=== PATIENT | female | born 1960 | race Caucasian/White ===

== ENCOUNTER 2017-09-29 19:15 | Observation (INO) | payer BC, SELFPAY ==
[2017-09-29 19:17] VITALS: BP 151/88; PULSE 58; RESP 16; TEMP 36.9; O2SAT 98; BMI 21.1
[2017-09-29 19:40] LABS: Bedside Glucose 110 mg/dL (70-110)
--- NOTE | 2017-09-29 20:09 | CT_ITS ---
STUDY: CT BRAIN WITHOUT CONTRAST REASON FOR EXAM: Female, 57 years old. Dizziness weakness RADIATION DOSAGE (If Supplied By Facility): CTDIvol = ( 44.99 ) mGy, DLP = ( 749.30 ) mGycm TECHNIQUE: Transaxial CT imaging of the brain was performed without administration of intravenous contrast material. Individualized dose optimization techniques were used for this CT. COMPARISON: August 12, 2016 CT scan head FINDINGS: Normal soft tissue structures. Normal calvarium. Normal size ventricles and extra-axial spaces for the patient's age. Normal white matter tracts of the cerebral hemispheres. Normal basal ganglia and thalami. Normal brainstem. Normal cerebellum. There is no intracranial hemorrhage. There are no findings of an acute ischemic infarction. There is trace mucosal thickening in the maxillary sinuses. CT/Brain/Head without Contrast IMPRESSION: Normal unenhanced CT scan of the brain. Electronically Signed: Danni Argueta MD at 20:59 EDT Tel , Service support ,
--- NOTE | 2017-09-29 20:09 | EKG12_ITS ---
Test Reason : DIZZINESS/WEAKNESS Blood Pressure : / mmHG Vent. Rate : 056 BPM Atrial Rate : 056 BPM P-R Int : 138 ms QRS Dur : 094 ms QT Int : 434 ms P-R-T Axes : 079 060 049 degrees QTc Int : 418 ms Sinus bradycardia Otherwise normal ECG Confirmed by MELISSA DELACRUZ, ELADIO ([id number]), web content editor MARGI GAMING ([id number]) on 09/30/2017 5:12:26 PM Referred By: OFELIA Confirmed By:ELADIO TORRES MD
--- NOTE | 2017-09-29 20:20 | RAD_ITS ---
STUDY: X-RAY CHEST REASON FOR EXAM: Female, 57 years old. Dizziness, weakness TECHNIQUE: Single frontal view of the chest. COMPARISON: None. FINDINGS: The lungs are clear and expanded. There is no demonstrated pleural abnormality. Normal size heart. Normal mediastinum and graciela. Normal visualized pulmonary arteries. Normal visualized aortic arch and descending thoracic aorta. Normal visualized thoracic spine. Normal visualized ribs, clavicles, and shoulders. There is no demonstrated abnormality of the visualized soft tissue structures of the upper abdomen. RAD/Chest 1 View (Portable) IMPRESSION: Normal x-ray examination of the chest. Electronically Signed: Danni Argueta MD at 20:42 EDT Tel , Service support ,
[2017-09-29 20:27] LABS: Absolute Lymphocyte Count 1.78 X10^3/ul (0.83-4.51); Absolute Neutrophil Count 2.5 X10^3/uL (2.0-7.7); Basophil# 0.02 X10^3/uL; Basophil% 0.4 % (0-1); Eosinophil# 0.14 X10^3/uL; Eosinophils% 2.9 % (0-5); Hematocrit 38.4 % (37-47); Hemoglobin 13.1 g/dl (12.0-15.0); Lymphocyte # 1.78 X10^3/ul (4.0); Lymphocyte % 36.7 % (19-41); Mean Corp Hgb Conc 34.1 g/gl (32-36); Mean Corpuscular Hgb 31.1 pg (27.0-32.0); Mean Corpuscular Volume 91.2 fL (81-99); Mean Platelet Vol. 9.3 fl (6.2-12.0); Monocyte# 0.43 X10^3/uL; Monocyte% 8.9 % (0-10); Neutrophil # 2.48 X10^3/uL (2.7-7.7); Neutrophil % 51.1 % (47-70); Platelet Count 300 K/mm3 (150-450); RBC Distribution Width CV 12.2 % (11.6-14.6); RBC Distribution Width SD 39.6 fl (35.1-43.9); Red Blood Count 4.21 M/mm3 (4.2-5.4); White Blood Count 4.9 K/mm3 (4.4-11.0)
[2017-09-29] MEDS: Meclizine 12.5 MG Tablet PO (20:34)
[2017-09-29 20:38] LABS: POSITIVE COUNT NO; POSITIVE DIFFERENTIAL NO; POSITIVE MORPHOLOGY NO
[2017-09-29 20:48] LABS: Anion Gap 6 (5-15); BUN 17 mg/dL (7-18); Calcium,Total 8.9 mg/dL (8.5-10.1); Chloride 101 mmol/L (98-107); Creatinine, Serum 0.68 mg/dL (0.55-1.02); EST Glomerular Filtration Rate 95 mL/min (>60); Est Glom Filt Rate - Afr Amer 115 mL/min (>60); Glucose 98 mg/dL (74-106); Potassium 3.5 mmol/L (3.5-5.1); Sodium Level 136 mmol/L (136-145)
[2017-09-29 21:15] VITALS: BP 134/84; PULSE 59; RESP 16; O2SAT 97
--- NOTE | 2017-09-29 21:30 | ED.DCSUM_ITS ---
- ER Visit Summary Date of Service: 09/29/17 Chief Complaint: Dizziness/vertigo History of Present Illness: The patient is a 57 F presenting with sudden onset of dizziness. She states that she was sitting at her computer and she started to feel dizzy with a spinning sensation. This worsened when she stood up and turned her head. She states that the symptoms persisted. Her checked her blood sugar and her blood pressure which were within normal limits. She states that her whole body felt weak. She did not pass out. She states that she was unable to answer questions appropriately. She states she knew which words she wanted to say but was unable to get the words out. She denies chest pain or shortness of breath. Physical Examination: Vitals are stable. Patient is afebrile. Alert no acute distress. HEENT exam is unremarkable. Neck is supple. Lungs are clear and equal bilaterally. Heart is regular rate and rhythm. Abdomen is soft nontender nondistended. Extremities are unremarkable. Skin is warm and dry. No focal neurologic deficit. NIH 0 Remainder of exam is unremarkable. Emergency Department Course and Treatment: Patient is given meclizine p.o. with improvement of her vertigo symptoms. EKG is sinus rate of 56 with no acute ischemic changes. CT head shows no acute process. Chest x-ray is normal. CBC , chemistries unremarkable. Troponin is negative. Her vertigo has improved but due to her expressive aphasia will discuss with the hospitalist for observation. Disposition: Observation Impression: Vertigo, expressive aphasia This note was generated with [employer] dictation software. It may contain incorrect words, spelling, and punctuation that were not noted in review of the chart prior to signing ED Disposition - Plan for ED Patient: Chief Complaint: Dizziness Referrals: Craig Lyn DO [Primary Care Provider] -
[2017-09-29 22:34] VITALS: BP 140/83; PULSE 61; RESP 16; O2SAT 98
--- NOTE | 2017-09-29 22:48 | PCM.HP.STD ---
Problem List (1) Vertigo Status: Acute History of Present Illness Date of Admission: 09/29/17 Chief Complaint: vertigo The patient is a 57 year old F who was in her normal state of health where patient suddenly, around 6:30 PM felt acutely dizzy. Patient was very pale and had to lay down. Patient stated that her dizziness got worse when she sat up. Patient's put 3 fingers in front of her face and patient knew what she wants a but her response was slow. There was no noted slurred speech but it was a delayed response. He was concerned as the patient was brought into the emergency room. In the emergency room patient has felt better and is pretty much back to normal patient had a CAT scan that was unremarkable additional blood work that was unremarkable. Patient did receive some meclizine in the emergency room. Patient has never had anything like this in the past. [] Past Medical History Allergies No Known Allergies Allergy (Verified 09/29/17 19:16) Home Medications: Ambulatory Orders Medication Instructions Recorded Calcium Carbonate [Calcium] 1,500 mg PO DAILY 09/29/17 Ergocalciferol [Vitamin D] 50,000 unit PO Q14D 09/29/17 Valacyclovir HCl [Valacyclovir] 500 mg PO DAILY 09/29/17 Psychiatric History: No pertinent psych hx Lives: Spouse/ Significant Other Smoking Status: Never smoker Alcohol: Rare Drugs: None - *Family History Maternal History Items: Stroke - TIA Review of Systems Constitutional: Denies: Chills, Fever, Weight Change Eyes: Denies: Blurred vision, Double vision HEENT: Denies: Head Aches, Sinus Congestion, Sinus Drainage Cardiovascular: Denies: Chest Pain, Palpitations Respiratory: Denies: Cough, Shortness of breath at rest, Sputum production Gastrointestinal: Denies: Abdominal Pain, Nausea, Vomiting Genitourinary: Denies: Dysuria Musculoskeletal: Denies: Joint Pain, Joint Tenderness Skin: Denies: Rash, Wounds Neurological: Reports: Balance problems, Incoordination Psychiatric: Denies: Anxiety, Depression Endocrine: Denies: Change in Body Habitus, Heat/ Cold Intolerance Hematologic/ Lymphatic: Denies: Easy Bruising, Easy Bleeding, Hx of blood clot Comment: All other review systems are negative except for as mentioned above in the HPI and review of systems. VTE Information - Inpt Only VTE Present on Admission: No VTE Pharm Prophylaxis ordered?: Yes Patient Problems: Active and Suspected Problems Vertigo (Acute) - Physical Exam General: Alert, Oriented x3, Cooperative, No apparent distress HEENT: Atraumatic, EOMI Oral: Moist Mucosa, No Gingival or Mucosal Lesions/ Ulcerations Neck: No Nodes, Thyroid Normal Size and Texture Lungs: Clear to auscultation, Normal air movement, No rhonchi, No wheeze Cardiovascular: Regular rate, Regular Rhythm, Normal S1, Normal S2, No murmurs Abdomen: Bowel Sounds Present, Soft, Non Tender, Non-Distended, No Hepato-splenomegaly Extremities: No edema, No Calf Tenderness Skin: No rashes, No breakdown Musculoskeletal: No Tenderness to Palpation of Joints or Extremities, No Muscle Wasting Neurological: Cranial nerves II-XII grossly intact, Neuro grossly intact, Motor Exam 5/5 strength throughout, - - Visual diaz intact except for impaired in the bilateral upper quadrants where patient was not able to see my fingers adequately. NIH score was 1 based on those visual field deficits. Psych/Mental Status: Normal Affect, Appropriate Vital Signs Temp Pulse Resp BP Pulse Ox 36.9 C 61 16 140/83 H 98 09/29/17 19:17 09/29/17 22:34 09/29/17 22:34 09/29/17 22:34 09/29/17 22:34 Oxygen Delivery Method Room Air Weight: 50.802 kg Body Mass Index (BMI) 21.1 Finger Stick Blood Glucose 110 Laboratory Tests Past 24 Hrs 09/29/17 09/29/17 19:40 19:40 WBC 4.9 RBC 4.21 Hgb 13.1 Hct 38.4 MCV 91.2 MCH 31.1 MCHC 34.1 RDW 12.2 RDW Differential 39.6 Plt Count 300 MPV 9.3 Immature Gran % (Auto) 0.000 Neut % (Auto) 51.1 Lymph % (Auto) 36.7 [place] % (Auto) 8.9 Eos % (Auto) 2.9 Baso % (Auto) 0.4 Absolute Neuts (auto) 2.5 Absolute Lymphs (auto) 1.78 Total Counted Not Reportable Sodium 136 Potassium 3.5 Chloride 101 Carbon Dioxide 29.0 Anion Gap 6 BUN 17 Creatinine 0.68 Est GFR (MDRD) Af Amer 115 Est GFR (MDRD) Non-Af 95 BUN/Creatinine Ratio 25.0 H Glucose 98 Calcium 8.9 Troponin I < 0.015 POC Glucose 09/29/17 19:35 POC Glucose 110 Clinical Impression(s) from Imaging Studies Brain CT 09/29/17 20:09 IMPRESSION: Normal unenhanced CT scan of the brain. Electronically Signed: Danni Argueta MD at 20:59 EDT Tel , Service support , Chest X-Ray 09/29/17 20:20 IMPRESSION: Normal x-ray examination of the chest. Electronically Signed: Danni Argueta MD at 20:42 EDT Tel , Service support , Assessment/Plan All Active Problems Vertigo (Acute) 1. Vertigo I suspect this is more of a benign paroxysmal positional vertigo rather than a stroke process. But given patient's visual field deficits I feel it is certainly prudent to rule out a stroke. Patient will be admitted under observation status and undergo an MRI of the brain, MRA of the head neck, 2D echocardiogram, physical and occupational therapy evaluate and treat. I am going to hold off on neurology consultation unless stroke is identified. As I feel most strongly this is likely vertigo I will have the patient take meclizine as needed. I have also advised There is no stroke that patient follow-up with this physical therapy for vestibular rehab. 2. DVT prophylaxis with Lovenox Code Visit OBSV E&M: 49953 Initial observation care L3
--- NOTE | 2017-09-29 22:54 | HP.PCM_ITS ---
Problem List (1) Vertigo Status: Acute History of Present Illness Date of Admission: 09/29/17 Chief Complaint: vertigo The patient is a 57 year old F who was in her normal state of health where patient suddenly, around 6:30 PM felt acutely dizzy. Patient was very pale and had to lay down. Patient stated that her dizziness got worse when she sat up. Patient's put 3 fingers in front of her face and patient knew what she wants a but her response was slow. There was no noted slurred speech but it was a delayed response. He was concerned as the patient was brought into the emergency room. In the emergency room patient has felt better and is pretty much back to normal patient had a CAT scan that was unremarkable additional blood work that was unremarkable. Patient did receive some meclizine in the emergency room. Patient has never had anything like this in the past. [] Past Medical History Allergies No Known Allergies Allergy (Verified 09/29/17 19:16) Home Medications: Ambulatory Orders Medication Instructions Recorded Calcium Carbonate [Calcium] 1,500 mg PO DAILY 09/29/17 Ergocalciferol [Vitamin D] 50,000 unit PO Q14D 09/29/17 Valacyclovir HCl [Valacyclovir] 500 mg PO DAILY 09/29/17 Psychiatric History: No pertinent psych hx Lives: Spouse/ Significant Other Smoking Status: Never smoker Alcohol: Rare Drugs: None - *Family History Maternal History Items: Stroke - TIA Review of Systems Constitutional: Denies: Chills, Fever, Weight Change Eyes: Denies: Blurred vision, Double vision HEENT: Denies: Head Aches, Sinus Congestion, Sinus Drainage Cardiovascular: Denies: Chest Pain, Palpitations Respiratory: Denies: Cough, Shortness of breath at rest, Sputum production Gastrointestinal: Denies: Abdominal Pain, Nausea, Vomiting Genitourinary: Denies: Dysuria Musculoskeletal: Denies: Joint Pain, Joint Tenderness Skin: Denies: Rash, Wounds Neurological: Reports: Balance problems, Incoordination Psychiatric: Denies: Anxiety, Depression Endocrine: Denies: Change in Body Habitus, Heat/ Cold Intolerance Hematologic/ Lymphatic: Denies: Easy Bruising, Easy Bleeding, Hx of blood clot Comment: All other review systems are negative except for as mentioned above in the HPI and review of systems. VTE Information - Inpt Only VTE Present on Admission: No VTE Pharm Prophylaxis ordered?: Yes Patient Problems: Active and Suspected Problems Vertigo (Acute) - Physical Exam General: Alert, Oriented x3, Cooperative, No apparent distress HEENT: Atraumatic, EOMI Oral: Moist Mucosa, No Gingival or Mucosal Lesions/ Ulcerations Neck: No Nodes, Thyroid Normal Size and Texture Lungs: Clear to auscultation, Normal air movement, No rhonchi, No wheeze Cardiovascular: Regular rate, Regular Rhythm, Normal S1, Normal S2, No murmurs Abdomen: Bowel Sounds Present, Soft, Non Tender, Non-Distended, No Hepato- splenomegaly Extremities: No edema, No Calf Tenderness Skin: No rashes, No breakdown Musculoskeletal: No Tenderness to Palpation of Joints or Extremities, No Muscle Wasting Neurological: Cranial nerves II-XII grossly intact, Neuro grossly intact, Motor Exam 5/5 strength throughout, - - Visual diaz intact except for impaired in the bilateral upper quadrants where patient was not able to see my fingers adequately. NIH score was 1 based on those visual field deficits. Psych/Mental Status: Normal Affect, Appropriate Vital Signs Temp Pulse Resp BP Pulse Ox 36.9 C 61 16 140/83 H 98 09/29/17 19:17 09/29/17 22:34 09/29/17 22:34 09/29/17 22:34 09/29/17 22:34 Oxygen Delivery Method Room Air Weight: 50.802 kg Body Mass Index (BMI) 21.1 Finger Stick Blood Glucose 110 Laboratory Tests Past 24 Hrs 09/29/17 09/29/17 19:40 19:40 WBC 4.9 RBC 4.21 Hgb 13.1 Hct 38.4 MCV 91.2 MCH 31.1 MCHC 34.1 RDW 12.2 RDW Differential 39.6 Plt Count 300 MPV 9.3 Immature Gran % (Auto) 0.000 Neut % (Auto) 51.1 Lymph % (Auto) 36.7 Person % (Auto) 8.9 Eos % (Auto) 2.9 Baso % (Auto) 0.4 Absolute Neuts (auto) 2.5 Absolute Lymphs (auto) 1.78 Total Counted Not Reportable Sodium 136 Potassium 3.5 Chloride 101 Carbon Dioxide 29.0 Anion Gap 6 BUN 17 Creatinine 0.68 Est GFR (MDRD) Af Amer 115 Est GFR (MDRD) Non-Af 95 BUN/Creatinine Ratio 25.0 H Glucose 98 Calcium 8.9 Troponin I < 0.015 POC Glucose 09/29/17 19:35 POC Glucose 110 Clinical Impression(s) from Imaging Studies Brain CT 09/29/17 20:09 IMPRESSION: Normal unenhanced CT scan of the brain. Electronically Signed: Danni Argueta MD at 20:59 EDT Tel , Service support , Chest X-Ray 09/29/17 20:20 IMPRESSION: Normal x-ray examination of the chest. Electronically Signed: Danni Argueta MD at 20:42 EDT Tel , Service support , Assessment/Plan All Active Problems Vertigo (Acute) 1. Vertigo * I suspect this is more of a benign paroxysmal positional vertigo rather than a stroke process. But given patient's visual field deficits I feel it is certainly prudent to rule out a stroke. Patient will be admitted under observation status and undergo an MRI of the brain, MRA of the head neck, 2D echocardiogram, physical and occupational therapy evaluate and treat. * I am going to hold off on neurology consultation unless stroke is identified. * As I feel most strongly this is likely vertigo I will have the patient take meclizine as needed. I have also advised There is no stroke that patient follow -up with this physical therapy for vestibular rehab. 2. DVT prophylaxis with Lovenox Code Visit OBSV E&M: 06275 Initial observation care L3
--- NOTE | 2017-09-29 23:14 | ECHOD_ITS ---
Reason For Study: TIA/CVA Procedure This was a 2D Doppler, Color Flow transthoracic echocardiogram. Exam performed portable in patient room. Left Ventricle Normal LV size. Left ventricular systolic function is normal. The estimated ejection fraction is 60 %. No evidence for diastolic dysfunction. No regional wall motion abnormalities noted. Right Ventricle Normal RV size. Normal systolic function. Atria Normal left atrium. Normal right atrium. Patent foramen ovale. Mitral Valve Normal mitral valve. Trivial eccentric mitral valve insufficiency. Tricuspid Valve Normal tricuspid valve. Trivial tricuspid valve insufficiency. Normal pulmonary artery pressure. Aortic Valve Normal aortic valve. Trisinus/trileaflet aortic valve. Pulmonic Valve Normal pulmonic valve. Great Vessels Normal aortic root. The pulmonary artery is normal size. Normal inferior vena cava. Pericardium/Pleural No pericardial effusion. Medication Performed a rapid injection of agitated mix of 9 cc saline and 1cc air to assess for atrial septal defect. MMode/2D Measurements & Calculations LVIDd: 4.7 cm IVSd: 0.72 cm Ao root diam: 2.6 cm LVIDs: 2.8 cm LVPWd: 0.73 cm RVDd: 3.3 cm FS: 38.9 % LAV(MOD-bp): 32.3 ml EDV(MOD-sp4): 62.2 ml SV(MOD-sp4): 45.0 ml LAV(MOD-bp) Indexed: 21.9 ml/m2 ESV(MOD-sp4): 17.2 ml LAV(MOD-sp2): 45.7 ml EF(MOD-sp4): 72.3 % LAV(MOD-sp4): 22.6 ml LA A4 area: 10.9 cm2 RA A4 area: 13.9 cm2 Doppler Measurements & Calculations MV E max ad: 87.3 cm/sec Lat Peak E' Ad: 12.0 cm/sec Med Peak E' Ad: 9.2 cm/sec MV A max ad: 55.9 cm/sec E/E' lat: 7.3 E/E' med: 9.5 MV E/A: 1.6 Ao V2 max: 135.2 cm/sec LV V1 max: 113.5 cm/sec PA V2 max: 81.7 cm/sec Ao max P.3 mmHg LV V1 max P.2 mmHg Ao V2 mean: 101.8 cm/sec Ao mean P.6 mmHg Ao V2 VTI: 30.6 cm TR max ad: 218.6 cm/sec TR max P.1 mmHg Interpretation Summary Normal LV size. Left ventricular systolic function is normal. The estimated ejection fraction is 60 %. No evidence for diastolic dysfunction. Patent foramen ovale. Ordering Physician: Phoenix Patiño Referring Physician: Craig Culver Performed By: Victoria Lu, SANTOS, RVT
[2017-09-29 23:22] VITALS: BMI 21.2
[2017-09-29 23:23] VITALS: PULSE 58
[2017-09-29 23:33] VITALS: BP 120/73; PULSE 95; RESP 16; TEMP 36.4; O2SAT 93
[2017-09-29 23:34] VITALS: BP 136/71
[2017-09-29 23:36] VITALS: BMI 21.2
[2017-09-30] VITALS (10 sets, daily range): BP systolic 83–119; BP diastolic 46–74; PULSE 50–88; RESP 14–16; TEMP 36.3–37.1; O2SAT 97–99; BMI 21.2
[2017-09-30 06:38] LABS: Cholesterol 167 mg/dL (200); High Density Lipoprotein 94 mg/dL; Triglycerides 50 mg/dL; Very Low Density Lipoprotein 10 mg/dL (5-40)
[2017-09-30] MEDS: Enoxaparin 40 MG/0.4 ML Syringe SC (07:03)
--- NOTE | 2017-09-30 07:34 | MRI_ITS ---
STUDY: MRI BRAIN WITH AND WITHOUT CONTRAST REASON FOR EXAM: Female, 57 years old. vertigo. TECHNIQUE: Standardized multiplanar fat and water weighted pulse sequences were obtained. 6 ml of Gadavist contrast material was administered intravenously for the contrast portion of the examination. COMPARISON: August 12, 2016 FINDINGS: Normal size of the ventricles and extra-axial spaces for the patient's age. Again noted are the limited number of small white matter hyperintensities, distributed throughout the deep white matter tracts of the cerebral hemispheres, consistent with mild chronic white matter ischemic changes. Normal bilateral basal ganglia. Normal thalami. There is no extra-axial fluid accumulation. Normal flow voids within the major intracranial circulation suggesting patency by spin echo criteria. Normal venous enhancement. There is no enhancing intra-axial or extra-axial abnormality. Normal sella turcica, pituitary gland, infundibular stalk, optic chiasm and hypothalamus. Normal tectal plate and pineal gland. Normal midbrain, edgar and medulla. Normal cerebellum. Normal basal cisterns. Normal bilateral temporal bones. Normal bilateral internal auditory canals. No demonstrated orbital abnormality, within the constraints of a routine brain study. There is mucoperiosteal inflammatory disease of the paranasal sinuses consistent with mild chronic sinusitis. Normal calvarium and skull base. Normal visualized soft tissue structures. Normal visualized upper cervical spine. MRI/Brain W/WO Contrast IMPRESSION: No acute intracranial abnormality or masses. Mild paranasal sinus disease. Electronically Signed: Rylan Arriaga MD at 13:00 EDT Tel , Service support ,
--- NOTE | 2017-09-30 07:35 | MRI_ITS ---
STUDY: MRA OF THE HEAD WITHOUT CONTRAST REASON FOR EXAM: Female, 57 years old. vertigo. TECHNIQUE: 3-D [id number] (TOF) imaging was performed with MIPs. The study was performed unenhanced. COMPARISON: None. FINDINGS: Normal bilateral petrous carotid arteries. Normal right cavernous carotid artery with a normal supraclinoid bifurcation. Normal left cavernous carotid artery with a normal supraclinoid bifurcation. Normal right A1 segments of the anterior cerebral artery. Normal left A1 segments of the anterior cerebral artery. Normal intact anterior communicating artery (ACOM). Normal bilateral A2 segments of the anterior cerebral arteries. Normal right M1 and M2 segments of the middle cerebral arteries, with a normal M1 bifurcation. Normal left M1 and M2 segments of the middle cerebral arteries, with a normal M1 bifurcation. Normal right posterior communicating artery (PCOM). Normal left posterior communicating artery (PCOM). Normal bilateral vertebral arteries. Normal basilar artery with a normal basilar bifurcation. The visualized bilateral superior cerebellar (SCA) arteries are normal. Normal bilateral P1, P2 and visualized P3 segments of the posterior cerebral arteries. There is no demonstrated aneurysm of the [place] of [place]. There is no major vessel occlusion or hemodynamically significant stenosis. There is no demonstrated abnormality of the visualized brain. MRI/MRA Head ONLY without Contrast IMPRESSION: Normal MRA of the head Electronically Signed: Rylan Arriaga MD at 13:01 EDT Tel , Service support ,
--- NOTE | 2017-09-30 07:35 | MRI_ITS ---
STUDY: MRA NECK WITH AND WITHOUT CONTRAST REASON FOR EXAM: Female, 57 years old. vertigo. TECHNIQUE: 3-D [id number] (TOF) imaging was performed in an 1.5 T MRI scanner. 6 ml of Gadavist was administered for the contrast enhanced images. COMPARISON: None. FINDINGS: RIGHT CAROTID ARTERIES: Normal right common carotid artery (CCA). Normal right common carotid bulb. Normal origin of the right internal carotid (ICA) artery without a hemodynamically significant stenosis. Normal visualized cervical portion of the right internal carotid artery. Normal origin of the right external carotid artery (ECA). LEFT CAROTID ARTERIES: Normal left common carotid artery (CCA). Normal left common carotid bulb. Normal origin of the left internal carotid (ICA) artery without a hemodynamically significant stenosis. Normal visualized cervical portion of the left internal carotid artery. Normal origin of the left external carotid artery (ECA). VERTEBRAL ARTERIES: Normal antegrade flow within the bilateral vertebral artery without a hemodynamically significant stenosis. MRI/MRA Neck WITH and W/O Contrast IMPRESSION: Normal bilateral cervical carotid and vertebral arteries. Electronically Signed: Rylan Arriaga MD at 13:06 EDT Tel , Service support ,
[2017-09-30] MEDS: LORazepam 0.5 MG Tablet PO (07:53)
--- NOTE | 2017-09-30 08:13 | NURSING ---
patient taken down for mri
--- NOTE | 2017-09-30 11:38 | PCM.DC ---
- Discharge Diagnoses Current Active Problems: Current Active and Chronic Problems Vertigo (Acute) You will use the following diet at home:: Regular Discharge Activity: May Not Drive - FOR 3 days for dizziness/vertigo Call your doctor if you observe: Fever of 101 or Higher, Chest pain Allergies/Adverse Reactions: Allergies No Known Allergies Allergy (Verified 09/29/17 19:16) Medications to take at Discharge Calcium Carbonate [Calcium] 1,500 mg PO DAILY 09/29/17 Ergocalciferol [Vitamin D] 50,000 unit PO Q14D 09/29/17 Valacyclovir HCl [Valacyclovir] 500 mg PO DAILY 09/29/17 Meclizine HCl [Antivert] 25 mg PO 4X/DAY PRN PRN #20 tab 09/30/17 The following prescriptions were given: Meclizine HCl [Antivert] 25 mg PO 4X/DAY PRN PRN #20 tab PRN Reason: Vertigo Primary Care Physician: Craig Lyn DO [Primary Care Provider] - Please follow up with your Primary Care Physician in: in 2 weeks
--- NOTE | 2017-09-30 11:39 | PCM.DC.SUM ---
Discharge Date and Diagnosis Date of Admission: 09/29/17 Date of Discharge: 09/30/17 - Primary Discharge Diagnosis Active and Suspected Problems Vertigo (Acute) Near syncope and vertigo most probably secondary to orthostatic hypotension Hospital Course and Treatment Imaging Results: 09/30/17 07:34 Brain W/WO Contrast [MRI] Routine 09/30/17 07:35 MRA Head ONLY without Contrast [MRI] Routine MRA Neck WITH and W/O Contrast [MRI] Routine Summary of Care Provided: The patient is a 57 year old F with no significant cardiac history or stroke came to ER with sudden onset of dizziness and vertigo and delayed responsiveness/awareness. She never had history of vertigo/dizziness. on further history, she felt dizzy and vertigo when changing the position of head mainly on turning head on the left side or on the standing up. The patient had CT head which was unremarkable. Patient was further admitted on [facility]. [] 1. Near syncope with vertigo most related to orthostatic hypotension/BPPV. monitoring and evaluation advisor shows normal sinus rhythm. Chest x-ray normal. MRI of brain, MRA neck and head was unremarkable. 2D echo was done and shows EF 60% with no evidence of diastolic dysfunction and no regional wall motion abnormality. Patient is reported normal. She has significant orthostatic change with blood pressure changed from 104/58, 75 to 86/49, 88 on the standing. Patient did not give any history of external loss of fluid. IV fluid normal saline 1 L bolus given and then 1 25/h for about 3 hours. Blood pressure improved 114/57. At the time of discharge patient did not had any dizziness. [place]-Hallpike maneuver was negative for vertigo but it can be falsely negative. Discharge medication reconciliation done. Discharge follow-up instructions given. Discharge Activity: May Not Drive - FOR 3 days for dizziness/vertigo Call your doctor if you observe: Fever of 101 or Higher, Chest pain Home Medications: Medications to take at Discharge Calcium Carbonate [Calcium] 1,500 mg PO DAILY 09/29/17 Ergocalciferol [Vitamin D] 50,000 unit PO Q14D 09/29/17 Valacyclovir HCl [Valacyclovir] 500 mg PO DAILY 09/29/17 Meclizine HCl [Antivert] 25 mg PO 4X/DAY PRN PRN #20 tab 09/30/17 Following Prescrptions Were Given to Patient: Meclizine HCl [Antivert] 25 mg PO 4X/DAY PRN PRN #20 tab PRN Reason: Vertigo Primary Care Physician: Craig Lyn DO [Primary Care Provider] - Please follow up with your Primary Care Physician in: in 2 weeks Medical Necessity - Tobacco Use Smoking Status: Never smoker Meaningful Use Info Meaningful Use Diagnoses (Choose all that apply): None applicable Code Visit OBSV E&M: 29346 Observation care discharge
[2017-09-30] MEDS: Aspirin 81 MG TAB.CHEW PO (11:47)
[2017-09-30] MEDS: Calcium (Elemental) 500 MG Tablet 1500 MG PO (11:47)
[2017-09-30] MEDS: 0.9% Normal Saline 1,000 ML 999 ML IV (12:32)
[2017-09-30] MEDS: 0.9% Normal Saline 1,000 ML 125 ML IV (13:42)
== END 2017-09-30 11:38 | disposition home or self-care (01) ==
LOC: ED 20:20 → PCU 23:01
PROVIDERS: Emergency Provider Emergency Medicine; Family Provider Student in an Organized Health Care Education/Training Program; PCP Student in an Organized Health Care Education/Training Program; Visit Provider Internal Medicine
DX: R42 Dizziness and giddiness (principal); R55 Syncope and collapse; Z79.899 Other long term (current) drug therapy; R47.01 Aphasia
CPT/HCPCS: 36415; 70450; 70544; 70549; 70553; 71045; 80048; 80061; 82962; 84484; 85025; 93005; 93306; 96360; 96361; 96372; 99218; 99285; A9585; J7030; A4216; G0378

== ENCOUNTER 2025-02-27 10:30 | Outpatient (RCR) | payer BC, SELFPAY ==
--- NOTE | 2024-10-12 15:35 | HP.PTEVAL_ITS ---
Patient's Visit Information Visit Information Visit Information: HEVER BOGGS is a 64 year old F referred to Physical Therapy by Dr. Delmar Durán MD with a diagnosis of S/P L FOOT SX FOR OA AND HALLUX VALGUS 08/31/24. Date of Evaluation: 10/12/24 Physical Therapist: Lorena Leiva, PT, Cert MDT Visit Plan Frequency: 1-3 Duration: 2-4 Months Plan: PT INITIALLY 1X/WK X 4-6 WKS INCREASING TO 2-3 TIMES A WK X 6-8 WKS FOR: GAIT TRAINING WITH LEAST ASSISTIVE DEVICE WBAT - INITIALLY WITH ANKLE AT 90 DEG IF WOULD BE IN BOOT X 4-6 WEEKS FROM START OF PT (UNTIL 11/09/24 TO 11/23/24). EDEMA REDUCTION LLE ROM, STRETCHING AND STRENGTHENING WITHOUT PUTTING PRESSURE ON PINS IN TOES. CORE STRENGTHENING. STAIR TRAINING HEP INSTRUCTION Subjective Subjective: THIS PATIENT PRESENTS TO PT WITH HER DAI REPORTING THAT SHE IS S/P L FOOT EXTENSIVE RECONSTRUCTIVE SURGERY 08/31/24. SHE STATES THAT SHE STARTED PUTTING WEIGHT ON HER FOOT LAST WEEK AND DEVELOPED INCREASED PAIN AND BLISTERS SO HAD TO BACK OFF AND IS NOW TRYING TO RESUME WEIGHT BEARING. REPORTS SEEING DR. DURÁN YESTERDAY AND IS WBAT NOW WITH [facility] IN [facility] BECAUSE BOOT IS TOO PROBLEMATIC. SHE REPORTS NOT HAVING TO DO STEPS TO GET IN/OUT OF HOME OR IN HOME. Work/Leisure: RETIRED. Present symptoms: L FOOT PAIN, SWELLING AND STIFFNESS. 3RD TOE IS PAINFUL, SWOLLEN AND STILL HAS A WOUND THAT WAS DEBRIDED YESTERDAY BY SURGEON. SHE ALSO REPORTS THE INCISION AT THE BASE OF HER BIG TOE IS STILL LEAKING SOME FLUID. TOPICAL ANTIBIOTIC ONLY NOW. Present since: ABOUT 3 YEARS Pain Scale: WORST 7/10, LEAST 1/10 Currently: 2/10 Is it getting better, worse or staying the same: GETTING BETTER Commenced as a result of: STANDING 14 HOURS A DAY FOR WORK Worse: WEIGHT BEARING, SHOOTING NERVE PAIN, BEING TOO ambitious WITH WEIGHT BEARING, TOUCHING IT, FAN BLOWING ON IT Better: PERCOCET, ELEVATION, ICE, TYLONOL Disturbed sleep: NO Previous history/Previous treatment: NO PRIOR PROCEEDURES ON THIS FOOT. PMH/Recent major surgery: HYPOTHYROIDISM CURRENT RESTRICTIONS: WBAT WITH A MARCH TYPE GAIT PATTERN FLAT FOOT NOT PUTTING PRESSURE ON TOES KEEPING ANKLE AT 90 DEG ANGLE. STATES SHE WAS SUPPOSED TO BE IN BOOT FOR A MONTH STARTING WEIGHT BEARING BUT TOES ARE TOO SENSATIVE FOR THE BOOT AND YESTERDAY HE SAID SHE DIDN'T HAVE TO WEAR IT. FOLLOW UP PLANNED WITH SURGEON IN 6 WEEKS. PATIENT REPORTS SHE FEELS COMFORTABLE WITH THE WOUND CARE OF HER FOOT AND WILL CONTINUE TO DO IT AND MONITOR IT. OTHER: STARTING WEEK 3 SHE HAS BEEN DOING ANKLE PUMPS AND ACTIVE TOE FLEX/EXT. SHE ALSO ADDED YELLOW TB TO ANKLE PF AND DF AT ABOUT 4 WKS PO Objective Objective: THIS PATIENT AMBULATES INDEP'LY INTO PT WITH [facility] TDWB (ANKLE 90 DEG) LLE WEARING SANDLE ON LLE, BANDAGE AND TRAVIS WRAP. NO LOB. HER GAIT IS SLOW AND STEADY X APPROX 300 FEET AND SHE IS FATIGUED AT END OF WALK BACK TO TREATMENT ROOM. SHE IS INDEP WITH TRANSFERS FROM SIT TO STAND, STAND TO SIT, SIT TO SUPINE AND SUPINE TO SIT. Sensory deficit: LLE LIGHT TOUCH SENSATION IS GROSSLY INTACT - NT IN BANDAGED AREA. ROM deficit: L ANKLE DORSI FLEX TO NEUTRAL/90 DEG. PF 15 DEG, IV 12 DEG, EV 3 DEG. PATIENTS REPORTS HER TOES ARE FIXED WITH PINS. Motor deficit: L HIP 4/5, KNEE 4/5, ANKLE 3-/5. Core strength: FAIR TREATMENT: PATIENT TO CONTINUE TO KEEP IN CLOSE TOUCH WITH SURGEONS OFFICE AND MONITOR FOOT CLOSELY FOR SIGNS OF INFECTION WITH SWELLING AND WOUND CARE. PATIENT STATES SHE FEELS VERY COMFORTABLE WITH THIS. DISCUSSED POC AND PATIENT AND THIS PT AGREED ON 1X/WK X 4-6 WKS INITIALLY FOR HEP INSTRUCTION. INSTRUCTED PATIENT IN GRADUAL INCREASE ACTIVITY TAKING FREQUENT BREAKS FROM SITTING EVERY 30 MIN FOR ABOUT 10 MIN TOLERATED. GAIT TRAINING WBAT KEEPING ANKLE AT 90 DEG AND AVOIDING ROLLING OFF TOES/PUTTING PRESSURE ON TOES BUT ALLOWING KNEE TO BEND WHEN SHE PICKS FOOT UP TO ADVANCE LEG. INITIATED GENTLE ADDITIONAL AROM WITH ANKLE ALPHABET STARTING ONCE A DAY INCREASING SLOWLY TO 3 TIMES A DAY TOLERATED. CONTINUE ICE AND ELEVATION. PATIENT COMMUNICATED/DEMONSTRATED GOOD UNDERSTANDING OF ALL INSTRUCTIONS AFTER GIVEN AND TOLERATED ROM WELL. Balance/Special Test Scores Lower Extremity Functional Score: 21 Goals Goal 1:: PATIENT WILL HAVE L ANKLE ROM WITHIN 75% OF R ANKLE ROM. Goal Time Frame: 8-12 Weeks Goal 2:: PATIENT WILL HAVE DECREASED EDEMA IN LLE. Goal Time Frame: 8-12 Weeks Goal 3:: PATIENT WILL HAVE INCREASED LLE STRENGTH TO 5/5 THROUGHT (IN AVAILABLE ROM) ALLOWING FOR INCREASED STABILITY WITH ALL GAIT ACTIVITIES. Goal Time Frame: 12-16 Weeks Goal 4:: PATIENT WILL HAVE NORMALIZED GAIT PATTERN WITHOUT USE OF AD Goal Time Frame: 12-16 Weeks Goal 5:: PATIENT WILL BE ABLE TO NEGOTIATE STEPS WITH 1 HR WITH RECIPROCAL PATTERN WITHOUT LIMITATIONS. Goal Time Frame: 12-16 Weeks Goal 6:: PATIENT TO REPORT 3/10 FOOT PAIN OR LESS WITH ALL ACTIVITIES. Goal Time Frame: 12-16 Weeks Rehabilitation Potential Physical Therapy Diagnosis: LLE PAIN, SWELLING, STIFFNESS AND WEAKNESS S/P RECONSTRUCTIVE SURGERY 08/31/24 WITH IMPAIRED GAIT. Rehabilitation Potential: Good Anticipated Interventions Patient/Client Instruction: Educate patient on: Condition, Plan of Care and Risk Factors For the Purpose of:: To improve self management Therapeutic Exercise to Include: Strength training, Body mechanics, Postural training, Flexibilty training, Gait and locomotor training and Neuromotor development For the Purpose of:: To decrease pain, To decrease swelling/inflammation, To improve nutrient delivery to tissue, To increase oxygenation perfusion, To improve muscle performance and motor function, To increase tolerance to activity/condition/position, To improve performance and independence with ADL's, To improve ability of physical actions for home/community/work/leisure, To improve gait and locomotor functions, To increase flexibility/ROM and To improve self management Manual Therapy Techniques to Include: Scar massage, Mobilization, Passive ROM and Soft tissue mobilization For the Purpose of:: To decrease pain, To decrease swelling/inflammation, To increase ROM, To improve nutrient delivery to tissue, To increase oxygenation perfusion, To decrease soft tissue restriction and To increase flexibility/ROM TENS: Yes Cryotherapy (ice pack, ice massage): Yes Vasopneumatic device: Yes (CONSIDER IN FUTURE IF NO INFECTION.) For the Purpose of:: To decrease pain and To decrease swelling/inflammation Text: Thank you for the opportunity to evaluate your patient. For Medicare and Medicare HMO plans, please review the plan of care and approve it. It will need to be FAXED BACK to us at [phone] for Medicare purposes. For Medicare only, by signing this I certify the plan of care. Please let me know if there are questions or concerns regarding this plan of care. Physician Signature: Date:
--- NOTE | 2025-02-27 11:34 | HP.PTDCSUM ---
Discharge Summary D/C summary: It has been my pleasure to treat HEVER BOGGS referred by Dr. Delmar Durán MD, with the diagnosis of S/P L FOOT SX FOR OA AND HALLUX VALGUS 08/31/24 for a total of 28 visit(s). Discharge Date: 02/27/25 Please see the following information for a summary of their discharge status. Subjective Subjective: PATIENT REPORTS THE MOST FOOT PAIN SHE HAS HAD IN THE LAST COUPLE OF WEEKS HAS BEEN 1/10 PAIN. WHEN SHE GETS PAIN SHE POINTS JUST DISTAL TO HER ANKLE LATERALLY ON THE ANTERIOR ASPECT OF HER FOOT. SHE REPORTS L FOOT PAIN WITH TOO MUCH WALKING. SHE REPORTS SHE IS WALKING UP TO ABOUT 9,000 STEPS A DAY AT THE MOST. SHE REPORTS SHE HAD HER FIRST DAY WITHOUT PAIN AND THAT IS HUGE. PATIENT REPORTS SHE IS DOING ALL OF HER NORMAL DAILY ACTVITIES BUT SHE DID HAVE A LITTLE TROUBLE GETTING UP INTO HER [employer] (VERY TALL STEPS - DOES THIS MAYBE ONCE A YEAR). HOPES TO GRADUALLY BE ABLE TO WALK LONGER AND FASTER ALONG WITH GETTING BACK TO [employer] IN [place]. SHE STATES WITH PERSONAL TRAVEL AND THE HOLIDAYS COMING UP SHE DOES NOT THINK SHE HAS TIME FOR MORE THERAPY AT THIS POINT. PLANNING TO LEAVE FOR [place] FOR THE WINTER AFTER . Pain Ankle: Pain Intensity (Out of 10): 0 Overall Improvement % Improvement: 85 Objective Objective/Function: PATIENT WAS SEEN TODAY FOR RE-ASSESSMENT OF PROGRESS TOWARD THE SET PT GOALS AND THE NEED FOR FURTHER PHYSICAL THERAPY VS READINESS FOR DISCHARGE. UPON EXAM TODAY: THIS PATIENT PRESENTS TO PT TODAY WITH VERY MILD LIMP ON LLE (DECREASED TOE OFF). SHE IS PLEASANT AND COOPERATIVE TO WORK WITH. SHE HAS MADE GOOD PROGRESS SINCE LAST RE-CHECK AND WOULD LIKE TO BE DISCHARGE TO [facility] AT THIS TIME. SHE STATES SHE HAS FOLLOW UP WITH HER SURGEON TOMORROW. SHE IS WEARING HER REGULAR NORMAL SIZED SHOE TODAY. UPON FURTHER ASSESSMENT TODAY: ROM deficit: DF L 20 DEG, R 24 DEG PF L 35 DEG, R 43 DEG IV L 29 DEG, R 37 DEG EV L 5 DEG (RESTING IN 5 DEG IV), R 15 DEG. CIRCUMFERENCE MEASUREMENTS: MT HEADS L: 21.0 CM MALLEOLI L: 24.5 CM 6" PROX L: 29 CM Steps: ASCENDS RECIPROCALLY W/O HR OR LIMITATION. DECENDS RECIPROCALLY WITH ONE HAND VERY LIGHTLY ON HR WITH MINIMAL DEVIATION LLE - DENIES PAIN BUT REPORTS FEELING STRETCH IN LLE. Tug Test: 9.90 SEC INDEP'LY WITHOUT AD. 30 sec STS Test: 17 WITHOUT UE ASSIST. Goals Goal 1:: PATIENT WILL HAVE L ANKLE ROM WITHIN 75% OF R ANKLE ROM. Goal Progress: Progressing Goal 2:: PATIENT WILL HAVE DECREASED EDEMA IN LLE. Goal Progress: Goal Met Goal 3:: PATIENT WILL HAVE INCREASED LLE STRENGTH TO 5/5 THROUGHT (IN AVAILABLE ROM) ALLOWING FOR INCREASED STABILITY WITH ALL GAIT ACTIVITIES. Goal Progress: Goal Met Goal 4:: PATIENT WILL HAVE NORMALIZED GAIT PATTERN WITHOUT USE OF AD Goal Progress: Progressing Goal 5:: PATIENT WILL BE ABLE TO NEGOTIATE STEPS WITH 1 HR WITH RECIPROCAL PATTERN WITHOUT LIMITATIONS. Goal Progress: Goal Met Goal 6:: PATIENT TO REPORT 3/10 FOOT PAIN OR LESS WITH ALL ACTIVITIES. Goal Progress: Progressing Plan Plan: D/C TO INDEP EX AT PATIENTS REQUEST. D/C Information d/c sentence: If there are questions or concerns regarding this patient's physical therapy, please feel free to call me at [phone]. Thank you for the referral of this patient. Sincerely, Lorena Leiva, PT, Cert MDT Balance/Gait/Functional tests Balance/Special Test Scores Lower Extremity Functional Score: 75 Improvement % Improvement: 85
== END 2025-02-27 19:00 | disposition home or self-care (01) ==
LOC: PT 10:30
PROVIDERS: PCP Student in an Organized Health Care Education/Training Program; Referring Provider Podiatrist Foot & Ankle Surgery; Visit Provider Podiatrist Foot & Ankle Surgery
DX: M19.072 Primary osteoarthritis, left ankle and foot (principal); M20.12 Hallux valgus (acquired), left foot; M79.672 Pain in left foot
CPT/HCPCS: 97110; 97140; 97162; 97530